=== PATIENT | female | born 1960 | race Caucasian/White ===

== ENCOUNTER 2024-07-28 16:48 | Emergency (ER) | payer MEDICARE ==
[2024-07-28 18:59] LABS: BASOPHILS ABSOLUTE AUTO 0.1 x10-3/uL (0.0-0.1); BASOPHILS PERCENT AUTO 0.9 % (0.2-1.5); EOSINOPHILS PERCENT AUTO 0.5 % (0.6-8.1); HEMATOCRIT 27.5 % (34.2-48.2); HEMOGLOBIN 9.4 g/dL (11.4-15.5); LYMPHOCYTES ABSOLUTE AUTO 1.7 x10-3/uL (1.0-4.4); LYMPHOCYTES PERCENT AUTO 18.5 % (18.4-52.1); MEAN CORPUSCULAR HEMOGLOBIN 30.6 pg (23.9-33.9); MEAN PLATELET VOLUME 6.8 fL (7.1-12.4); MONOCYTES ABSOLUTE AUTO 1.1 x10-3/uL (0.3-1.0); MONOCYTES PERCENT AUTO 11.7 % (4.4-15.7); NEUTROPHILS ABSOLUTE AUTO 6.3 x10-3/uL (1.5-6.3); NEUTROPHILS PERCENT AUTO 68.4 % (30.8-76.2); PLATELET COUNT,PLT 329 x10(3)uL (151-488); RED BLOOD CELL COUNT 3.06 x10(6)uL (3.60-5.20); RED CELL DISTRIBUTION WIDTH 12.7 % (12.3-16.5); WHITE BLOOD CELL COUNT,WBC 9.2 x10-3/uL (3.0-10.3)
[2024-07-28 19:11] LABS: A/G RATIO 0.7; ALANINE AMINOTRANSFERASE,ALT 46 U/L (12-36); ALBUMIN 2.7 g/dL (3.2-4.6); ALKALINE PHOSPHATASE 102 IU/L (56-112); ASPARTATE AMNIOTRANSFERASE,AST 29 IU/L (5-25); BILIRUBIN TOTAL 0.7 mg/dL (0.1-1.3); BLOOD UREA NITROGEN,BUN 20 mg/dL (7-18); CALCIUM 8.5 mg/dL (8.6-10.2); CARBON DIOXIDE,CO2 29 mmol/L (21-32); CHLORIDE,CL 102 mmol/L (100-110); ESTIMATED GFR 27 mL/min (>60); GLUCOSE RANDOM 130 mg/dL (80-116); POTASSIUM,K 3.2 mmol/L (3.5-5.3); PROTEIN TOTAL,TP 6.5 g/dL (6.0-8.0); SODIUM,NA 141 mmol/L (135-145)
[2024-07-28 19:14] LABS: LACTIC ACID 0.9 mmol/L (0.4-2.0)
[2024-07-28 19:55] LABS: BILIRUBIN,URINE NEGATIVE (NEGATIVE); GLUCOSE,URINE NORMAL (NORMAL); KETONES,URINE NEGATIVE (NEGATIVE); LEUKOCYTE ESTERASE,URINE SMALL (NEGATIVE); NITRITE,URINE NEGATIVE (NEGATIVE); OCCULT BLOOD,URINE NEGATIVE (NEGATIVE); PROTEIN,URINE NEGATIVE (NEGATIVE); UROBILINOGEN,URINE NORMAL (NEGATIVE)
[2024-07-28 19:58] LABS: APPEARANCE,URINE CLEAR (CLEAR); COLOR,URINE YELLOW (YELLOW)
[2024-07-28] MEDS: oxyCODONE 5 MG Tab PO ONE (20:11)
[2024-07-28 20:34] LABS: BACTERIA,URINE MODERATE (NS); RBC,URINE 0-5 (0-5); SQUAMOUS EPITHELIAL CELLS,UR FEW (NS,R,O)
[2024-07-28] MEDS ORDERED: Sodium Chloride 0.9% 10 ML Syringe FLUSH PRN (21:15)
[2024-07-28] MEDS: Sodium Chloride 0.9% 1,000 ML IV ONE (21:26)
[2024-07-28] MEDS: Potassium Chloride 20 MEQ Tab.ER PO ONE (21:31)
[2024-07-28] MEDS: Aluminum Hydroxide/Magnesium Hydroxide Susp 30 ML Cup PO ONE (22:20)
== END 2024-07-28 23:10 ==
LOC: FB.ED 16:48
DX: E87.6 Hypokalemia (principal); N17.9 Acute kidney failure, unspecified; N39.0 Urinary tract infection, site not specified; I10 Essential (primary) hypertension; E11.9 Type 2 diabetes mellitus without complications; E03.9 Hypothyroidism, unspecified; F17.210 Nicotine dependence, cigarettes, uncomplicated; Z88.2 Allergy status to sulfonamides; Z79.82 Long term (current) use of aspirin; Z79.84 Long term (current) use of oral hypoglycemic drugs; Z79.890 Hormone replacement therapy; Z79.899 Other long term (current) drug therapy
CPT/HCPCS: 36415; 80053; 81001; 83605; 85025; 87086; 96360; 99284-25; A9270-GY; J7030

== ENCOUNTER 2024-08-01 11:27 | Inpatient (IN) | payer MEDICARE ==
[2024-08-01] MEDS ORDERED: Nicotine 7 MG/24 Hr Patch TRDERM PRN (14:46)
[2024-08-01] MEDS ORDERED: Polyethylene Glycol 3350 Powder 17 GM Packet PO PRN (14:46)
[2024-08-01] MEDS ORDERED: Ondansetron 4 MG Tab.DIS PO PRN (14:46)
[2024-08-01] MEDS: oxyCODONE 5 MG Tab PO PRN (16:42)
[2024-08-01] MEDS: metFORMIN 1,000 MG Tab PO SCH (17:43)
[2024-08-01] MEDS: Carvedilol 12.5 MG Tab PO SCH (21:37)
[2024-08-01] MEDS: atorvaSTATin 20 MG Tab PO SCH (21:38)
[2024-08-01] MEDS: Acetaminophen 325 MG Tab PO PRN (23:02)
[2024-08-02] MEDS: Levothyroxine 100 MCG Tab PO SCH (06:36)
[2024-08-02] MEDS: glipiZIDE 5 MG Tab PO SCH (08:48)
[2024-08-02] MEDS: Pioglitazone 15 MG Tab PO SCH (08:49)
[2024-08-02] MEDS: Aspirin 81 MG Tab.Chew PO SCH (08:49)
[2024-08-02] MEDS: Losartan 50 MG Tab PO SCH (08:50)
[2024-08-02] MEDS: amLODIPine 5 MG Tab PO SCH (08:50)
[2024-08-02] MEDS: FLUoxetine 20 MG Cap PO SCH (08:51)
[2024-08-02] MEDS: Multivitamins with Iron/Calcium/Folic Acid/Minerals Tab PO SCH (08:51)
[2024-08-02] MEDS: Calcium Carbonate 500 MG Tablet PO SCH (08:51)
[2024-08-02] MEDS: Cyanocobalamin (Vitamin B12) 500 MCG Tab PO SCH (08:53)
[2024-08-02] MEDS: guaiFENesin 100 MG/5 ML Soln 5 ML UD Cup PO PRN (11:14)
[2024-08-02] MEDS: Acetaminophen 325 MG Tab PO SCH (18:08)
[2024-08-04] MEDS: Acetaminophen 325 MG Tab PO SCH (12:21)
[2024-08-06 06:49] VITALS: BP 103/70; PULSE 75
== END 2024-08-06 13:05 | disposition home health service (06) | DRG 947 ==
LOC: FB.MS 13:20
PROVIDERS: ADMIT Family Medicine; ATTEND Internal Medicine
DX: R53.81 Other malaise (principal); J96.01 Acute respiratory failure with hypoxia; J44.1 Chronic obstructive pulmonary disease with (acute) exacerbation; N17.9 Acute kidney failure, unspecified; H54.7 Unspecified visual loss; I10 Essential (primary) hypertension; E11.9 Type 2 diabetes mellitus without complications; E03.9 Hypothyroidism, unspecified; F15.90 Other stimulant use, unspecified, uncomplicated; F41.8 Other specified anxiety disorders; E78.5 Hyperlipidemia, unspecified; F17.210 Nicotine dependence, cigarettes, uncomplicated; E87.6 Hypokalemia; K59.00 Constipation, unspecified; E83.42 Hypomagnesemia; Z88.2 Allergy status to sulfonamides; Z79.82 Long term (current) use of aspirin; Z79.02 Long term (current) use of antithrombotics/antiplatelets; Z87.81 Personal history of (healed) traumatic fracture; Z98.890 Other specified postprocedural states; S42.402D Unspecified fracture of lower end of left humerus, subsequent encounter for fracture with routine healing; Z79.84 Long term (current) use of oral hypoglycemic drugs; Z79.899 Other long term (current) drug therapy
CPT/HCPCS: 97110-GP; 97161-GP; 97165-GO; 97530-GO; 97530-GP; 97535-GO; 99305; 99315; A9270-GY